=== PATIENT | female | born 1985 | race Caucasian/White ===

== ENCOUNTER 2016-12-15 12:41 | Emergency (ER) | payer SELFPAY ==
--- NOTE | 2016-12-15 13:30 | ER Document Report ---
ED Medical Screen (RME) - General Stated Complaint: WEAKNESS Notes: 3 days with lethargy. no bleeding, normal movement. no urinary or vaginal symptoms 23 weeks I have greeted and performed a rapid initial assessment of this patient. A comprehensive ED assessment and evaluation of the patient, analysis of test results and completion of the medical decision making process will be conducted by additional ED providers. - Related Data Allergies/Adverse Reactions: No Known Allergies Allergy (Verified 12/15/16 13:27) Physical Exam - Vital signs Vitals: Temp Pulse Resp BP Pulse Ox 98.8 F 101 H 16 117/74 99 12/15/16 13:26 12/15/16 13:26 12/15/16 13:26 12/15/16 13:26 12/15/16 13:26 Course - Vital Signs Vital signs: Temp Pulse Resp BP Pulse Ox 98.8 F 101 H 16 117/74 99 12/15/16 13:26 12/15/16 13:26 12/15/16 13:26 12/15/16 13:26 12/15/16 13:26
[2016-12-15 14:10] LABS: ABSOLUTE EOSINOPHILS # (AUTO) 0.1 10^3/uL (0.0-0.6); ABSOLUTE LYMPHOCYTES (AUTO) 1.4 10^3/uL (0.5-4.7); ABSOLUTE MONOCYTES (AUTO) 0.3 10^3/uL (0.1-1.4); ABSOLUTE NEUT (AUTO) 6.6 10^3/uL (1.7-8.2); BASOPHILS % (AUTO) 0.4 % (0-2); HEMATOCRIT 32.7 % (36.0-47.0); HGB HCT DIFFERENCE 0.3; MEAN CORPUSCULAR HGB CONC 33.5 g/dL (32.0-36.0); MEAN CORPUSCULAR VOLUME 90 fl (80-97); MONOCYTES % (AUTO) 3.9 % (3-13); RED BLOOD COUNT 3.66 10^6/uL (3.72-5.28); RED CELL DISTRIBUTION WIDTH 12.8 % (11.5-14.0); SEGMENTED NEUTROPHILS % (AUTO) 77.7 % (42-78); WHITE BLOOD COUNT 8.5 10^3/uL (4.0-10.5)
[2016-12-15 14:13] LABS: APPEARANCE,URINE SLIGHTLY-CLOUDY; BILIRUBIN,URINE NEGATIVE (NEGATIVE); GLUCOSE, URINE NEGATIVE (NEGATIVE); KETONES,URINE NEGATIVE (NEGATIVE); LEUKOCYTE ESTERASE,URINE NEGATIVE (NEGATIVE); NITRITE,URINE NEGATIVE (NEGATIVE); PROTEIN,URINE NEGATIVE (NEGATIVE); URINE SPECIFIC GRAVITY 1.006; UROBILINOGEN,URINE NEGATIVE mg/dL (<2.0)
[2016-12-15] MEDS ORDERED: NORMAL SALINE 1000 ML 1,000 ML IV ONE (14:17)
[2016-12-15 14:30] LABS: ALANINE AMINOTRANSFERASE 30 U/L (9-52); ALBUMIN 3.6 g/dL (3.5-5.0); ALKALINE PHOSPHATASE 66 U/L (38-126); ANION GAP 11 (5-19); ASPARTATE AMINO TRANSFERASE 18 U/L (14-36); BILIRUBIN,TOTAL 0.3 mg/dL (0.2-1.3); BLOOD UREA NITROGEN 10 mg/dL (7-20); CALCIUM 9.3 mg/dL (8.4-10.2); CARBON DIOXIDE 27 mmol/L (22-30); CHLORIDE 100 mmol/L (98-107); CREATININE RESULT 0.56 mg/dL (0.52-1.25); GLUCOSE 78 mg/dL (75-110); POTASSIUM 3.9 mmol/L (3.6-5.0); SODIUM 137.8 mmol/L (137-145); TOTAL PROTEIN 6.8 g/dL (6.3-8.2)
--- NOTE | 2016-12-15 14:48 | ER Document Report ---
[id number] TRAVEL OUTSIDE OF THE [place] IN LAST 30 DAYS: No - HPI Quality of pain: No pain Severity: None Associated symptoms: None <HUMAIRA AKINS - Last Filed: 12/15/16 16:14> <ÁNGEL KUMAR - Last Filed: 12/18/16 01:21> - General Chief Complaint: Weakness Stated Complaint: WEAKNESS Notes: Patient is a 31-year-old female that presents to the emergency department today with complaints of generalized weakness including near-syncope over the last 3- 4 days. Patient states she has intermittently felt like this throughout her . Patient states she is 23 weeks . Patient is . Patient states she feels like her hands and feet are cold. Patient states she believes she is hydrating appropriately, she believes she is drinking approximately one half of a gallon of water a day. Patient states that she has been taking multivitamins with iron and she has noticed that this constipates her. Patient denies any vomiting, caffeine usage, history of anemia, urinary symptoms, vaginal discharge, or abdominal pain. Patient states she has felt the baby move appropriately over the last few days. (HUMAIRA AKINS) - Related Data Allergies/Adverse Reactions: No Known Allergies Allergy (Verified 12/15/16 13:27) Past Medical History - General Information source: Patient - Social History Smoking Status: Unknown if Ever Smoked Cigarette use (# per day): No Chew tobacco use (# tins/day): No Frequency of alcohol use: None Drug Abuse: None Lives with: Spouse/Significant other Family History: Reviewed & Not Pertinent Patient has suicidal ideation: No Patient has homicidal ideation: No Pulmonary Medical History: Reports: Hx Pneumonia Surgical Hx: Negative <HUMAIRA AKINS - Last Filed: 12/15/16 16:14> Review of Systems - Review of Systems Constitutional: See HPI, Other - "cold hands and feet" EENT: No symptoms reported Cardiovascular: See HPI, Other - near syncope Respiratory: No symptoms reported Gastrointestinal: See HPI, Constipation. denies: Abdominal pain, Vomiting Genitourinary: denies: Burning, Dysuria, Discharge, Hematuria Female Genitourinary: See HPI, Musculoskeletal: No symptoms reported Skin: No symptoms reported Hematologic/Lymphatic: No symptoms reported Neurological/Psychological: No symptoms reported -: Yes All other systems reviewed and negative <HUMAIRA AKINS - Last Filed: 12/15/16 16:14> Physical Exam <HUMAIRA AKINS - Last Filed: 12/15/16 16:14> <ÁNGEL KUMAR - Last Filed: 12/18/16 01:21> - Vital signs Vitals: Temp Pulse Resp BP Pulse Ox 98.8 F 101 H 16 117/74 99 12/15/16 13:26 12/15/16 13:26 12/15/16 13:26 12/15/16 13:26 12/15/16 13:26 (HUMAIRA AKINS) (ÁNGEL KUMAR) - Notes Notes: Physical Exam: General: Alert, appears well. HEENT: Normocephalic. Atraumatic. PERRL. Extraocular movements intact. Oropharynx clear. Neck: Supple. Respiratory: No respiratory distress. Abdominal: Gravid Female. No distension. No tenderness with palpation. No rigidity or palpable masses. Extremities: Moves all four extremities. Neurological: Normal cognition. AAOx4. Normal speech. Psychological: Normal affect. Normal Mood. Skin: Warm. Dry. Normal color. (HUMAIRA AKINS) Course - Laboratory Result Diagrams: 12/15/16 13:40 12/15/16 13:40 <HUMAIRA AKINS - Last Filed: 12/15/16 16:14> - Laboratory Result Diagrams: 12/15/16 13:40 12/15/16 13:40 <ÁNGEL KUMAR - Last Filed: 12/18/16 01:21> - Re-evaluation Re-evalutation: 12/15/16 16:33 I personally performed the services described in the documentation, reviewed and edited the documentation which was dictated to my scribe in my presence, and it accurately records my words and actions. Patient presents the emergency department approximately 22-23 weeks with a chief complaint of weakness. Patient has not seen any provider for her as scheduled when she got insurance to see Dr. Lainez on Thursday. Says she's felt weak and tired the entire that is not new or different. Sellick her heart was racing a little bit. She said that's really no different than it's been for the past 23 weeks but they wanted to be seen today were unable to so they came to the emergency department. She has no abdominal pain flank pain urinary symptoms vaginal bleeding or discharge no chest pain pressure or headache blurred vision double vision or neurological deficits she is well-appearing nontoxic on examination. Well-hydrated negative acute labs. We will DC follow up on Thursday with [facility] physician as instructed return for increasing worsening or new symptoms (ÁNGEL KUMAR) - Vital Signs Vital signs: Temp Pulse Resp BP Pulse Ox 98.7 F 98 16 101/84 100 12/15/16 18:00 12/15/16 18:00 12/15/16 18:00 12/15/16 18:00 12/15/16 18:00 (HUMAIRA AKINS) (ÁNGEL KUMAR) - Laboratory Laboratory results interpreted by me: 12/15/16 12/15/16 12/15/16 13:40 13:40 13:40 RBC 3.66 L Hgb 11.0 L Hct 32.7 L Beta HCG, Quant 53920.00 H Urine Ascorbic Acid 20 H (HUMAIRA AKINS) (ÁNGEL KUMAR) Discharge <HUMAIRA AKINS - Last Filed: 12/15/16 16:14> <ÁNGEL KUMAR - Last Filed: 12/18/16 01:21> - Discharge Clinical Impression: Fatigue during Qualifiers: Trimester: second trimester Qualified Code(s): O26.812 - related exhaustion and fatigue, second trimester Condition: Stable Disposition: HOME, SELF-CARE Additional Instructions: You are . care is best started as early in as possible. If you're unsure about continuing this , you should discuss this with your physician or with health informatics specialist at [facility]. You should take only medications approved by your physician. Acetaminophen can safely be taken for minor pains. As a rule, medication for chronic conditions such as asthma or seizures can safely be continued. You should discuss with the physician every medicine you take. Any regular exercise program can be continued. Talk to your physician, however, before engaging in competitive or demanding sports. Alcohol, smoking, and "street drugs" are dangerous to your baby. Cocaine is especially dangerous. Don't use any illicit drugs! Referrals: PETER PIPER MD [Primary Care Provider] - Follow up as needed (On Thursday as scheduled return immediately to the emergency department for increasing worsening or new symptoms) Scribe Documentation <HUMAIRA AKINS - Last Filed: 12/15/16 16:14> <ÁNGEL KUMAR - Last Filed: 12/18/16 01:21> - Scribe Written by Sherlynibe:: ÁNGEL KUMAR DO, SCRIBE 12/15/16 1633 Acting as scribe for: HUMAIRA Ridley) (ÁNGEL KUMAR)
[2016-12-16 00:40] VITALS: BP 101/84
== END 2016-12-15 18:05 | disposition home or self-care (01) ==
LOC: ER 12:41
DX: O26.812 Pregnancy related exhaustion and fatigue, second trimester (principal); O26.892 Other specified pregnancy related conditions, second trimester; R53.1 Weakness; R55 Syncope and collapse; Z3A.23 23 weeks gestation of pregnancy; Z79.899 Other long term (current) drug therapy
CPT/HCPCS: 36415; 80053; 81001; 84702; 85025; 99284

== ENCOUNTER 2017-02-13 11:09 | Emergency (ER) | payer BC ==
[2017-02-13] MEDS ORDERED: NORMAL SALINE 1000 ML 1,000 ML IV ONE (11:17)
--- NOTE | 2017-02-13 11:19 | ER Document Report ---
ED Medical Screen (RME) - General Stated Complaint: BLOOD PRESSURE PROBLEMS Notes: Patient sent from [facility] for evaluation of shortness of breath, low blood pressure and elevated HR. Blood pressure at office was 75/47, heart rate 163. Patient was feeling weak at the office, and vomited 1. Patient is 32 weeks , but has no abdominal pain or vaginal bleeding. Discussed patient with Dr. Rice. I have greeted and performed a rapid initial assessment of this patient. A comprehensive ED assessment and evaluation of the patient, analysis of test results and completion of the medical decision making process will be conducted by additional ED providers. TRAVEL OUTSIDE OF THE [place] IN LAST 30 DAYS: No - Related Data Allergies/Adverse Reactions: No Known Allergies Allergy (Verified 02/13/17 11:16) Past Medical History Pulmonary Medical History: Reports: Hx Pneumonia Renal/ Medical History: Denies: Hx Peritoneal Dialysis Physical Exam - Cardiovascular Rhythm: Regular Heart sounds: Normal auscultation
--- NOTE | 2017-02-13 12:02 | ER Document Report ---
ED General - General Chief Complaint: Low Blood Pressure Stated Complaint: BLOOD PRESSURE PROBLEMS Mode of Arrival: Ambulatory Information source: Patient Notes: This is a 31-year-old female at 32 weeks' gestational age who [facility] of low blood pressure. Patient states that she was at her scheduled surgery 2 week appointment today when she felt weak and lightheaded. She also had an episode of nausea and vomiting at the office. Reportedly her blood pressure at the office was 75/47 with a heart rate of 163. Patient states that she has been feeling intermittently lightheaded throughout her but worse over the past few weeks. She denies any fevers or chills. She did eat a good breakfast this morning. She denies any abdominal pain or cramping. She has had no chest pain or shortness of breath. She has had no lower extremity edema. She has not had headaches, or vision changes. She has had no vaginal bleeding or loss of fluids. She does report good movement today. She states that she has not had any problems with this . Currently she states that she feels much better and has no specific complaints at this time. TRAVEL OUTSIDE OF THE [place] IN LAST 30 DAYS: No - Related Data Allergies/Adverse Reactions: No Known Allergies Allergy (Verified 02/13/17 11:16) Past Medical History - Social History Smoking Status: Never Smoker Chew tobacco use (# tins/day): No Frequency of alcohol use: None Drug Abuse: None Family History: Reviewed & Not Pertinent Patient has suicidal ideation: No Patient has homicidal ideation: No Pulmonary Medical History: Reports: Hx Pneumonia Renal/ Medical History: Denies: Hx Peritoneal Dialysis Review of Systems - Review of Systems Notes: REVIEW OF SYSTEMS: CONSTITUTIONAL : Denies fever, chills, or sweats. Denies recent illness. EENT: Denies eye, ear, throat, or mouth pain or symptoms. Denies nasal or sinus congestion. CARDIOVASCULAR: Denies chest pain. RESPIRATORY: Denies cough, cold, or chest congestion. Denies shortness of breath, difficulty breathing, or wheezing. GASTROINTESTINAL: Denies abdominal pain. Denies nausea, vomiting, or diarrhea. Mild constipation GENITOURINARY: Denies difficulty urinating, painful urination, burning, frequency, or blood in urine. FEMALE GENITOURINARY: Denies vaginal bleeding MUSCULOSKELETAL: Denies neck or back pain or joint pain or swelling. SKIN: Denies rash or skin lesions. HEMATOLOGIC : Denies easy bruising or bleeding. LYMPHATIC: Denies swollen, enlarged glands. NEUROLOGICAL: Denies altered mental status or loss of consciousness. Denies headache. PSYCHIATRIC: Denies anxiety or stress or depression. ALL OTHER SYSTEMS REVIEWED AND NEGATIVE. Physical Exam - Vital signs Vitals: Temp Pulse Resp BP Pulse Ox 98 F 96 16 98/67 L 100 02/13/17 11:11 02/13/17 11:11 02/13/17 11:11 02/13/17 11:11 02/13/17 11:11 Notes: FHT = 138-143 - Notes Notes: PHYSICAL EXAMINATION: GENERAL: Well-appearing, well-nourished and in no acute distress. Very pleasant and conversant HEAD: Atraumatic, normocephalic. EYES: Pupils equal round and reactive to light, extraocular movements intact, sclera anicteric, conjunctiva are normal. ENT: nares patent, oropharynx clear without exudates. Moist mucous membranes. NECK: Normal range of motion, supple without lymphadenopathy LUNGS: Breath sounds clear to auscultation bilaterally and equal. No wheezes rales or rhonchi. HEART: Regular rate and rhythm without murmurs ABDOMEN: Soft, gravid ,nontender, normoactive bowel sounds. No guarding, no rebound. No masses appreciated. EXTREMITIES: Normal range of motion, no pitting or edema. No cyanosis. NEUROLOGICAL: Cranial nerves grossly intact. Normal speech, normal gait. Normal sensory, motor, and reflex exams. PSYCH: Normal mood, normal affect. SKIN: Warm, Dry, normal turgor, no rashes or lesions noted. Course - Re-evaluation Re-evalutation: 02/13/17 15:23 Patient reevaluated. She stated that she feels much better. Orthostatic vital signs are within normal limits. Her blood pressure has been stable here in the emergency department. Labs and urine are reassuring. I discussed the case with OB physician Dr. Lowery. She recommends continued rest and po fluids at home , and recheck in clinic early next week. Strict return precautions discussed. Pt and family very comfortable with this plan. - Vital Signs Vital signs: Temp Pulse Resp BP Pulse Ox 98 F 103 H 20 100/65 100 02/13/17 13:07 02/13/17 15:15 02/13/17 13:00 02/13/17 15:15 02/13/17 13:00 - Laboratory Result Diagrams: 02/13/17 12:30 02/13/17 12:30 Laboratory results interpreted by me: 02/13/17 02/13/17 02/13/17 12:30 12:30 12:30 RBC 3.67 L Hgb 11.3 L Hct 32.5 L Seg Neutrophils % 83.5 H Lymphocytes % 11.9 L Absolute Neutrophils 8.7 H Sodium 135.3 L Creatinine 0.44 L Creatine Kinase < 20 L Urine Glucose (UA) 50 H Discharge - Discharge Clinical Impression: Third trimester , Dehydration Vomiting Qualifiers: Vomiting type: unspecified Vomiting Intractability: non-intractable Nausea presence: with nausea Qualified Code(s): R11.2 - Nausea with vomiting, unspecified Condition: Stable Disposition: HOME, SELF-CARE Additional Instructions: As discussed, continue to rest and drink plenty of fluids. Follow-up with OB on Thursday. Return to the emergency department for any fever, contractions, vaginal bleeding, fainting, decreased movement or any worsening symptoms or concerns. Referrals: PETER PIPER MD [Primary Care Provider] - Follow up as needed
[2017-02-13 12:50] LABS: ABSOLUTE LYMPHOCYTES (AUTO) 1.2 10^3/uL (0.5-4.7); ABSOLUTE MONOCYTES (AUTO) 0.4 10^3/uL (0.1-1.4); ABSOLUTE NEUT (AUTO) 8.7 10^3/uL (1.7-8.2); BASOPHILS % (AUTO) 0.3 % (0-2); EOSINOPHILS % (AUTO) 0.4 % (0-6); HEMATOCRIT 32.5 % (36.0-47.0); HEMOGLOBIN 11.3 g/dL (12.0-15.5); HGB HCT DIFFERENCE 1.4; LYMPHOCYTES % (AUTO) 11.9 % (13-45); MEAN CORPUSCULAR HEMOGLOBIN 30.6 pg (27.0-33.4); MEAN CORPUSCULAR HGB CONC 34.6 g/dL (32.0-36.0); MEAN CORPUSCULAR VOLUME 89 fl (80-97); MONOCYTES % (AUTO) 3.9 % (3-13); RED BLOOD COUNT 3.67 10^6/uL (3.72-5.28); RED CELL DISTRIBUTION WIDTH 12.8 % (11.5-14.0); SEGMENTED NEUTROPHILS % (AUTO) 83.5 % (42-78); WHITE BLOOD COUNT 10.4 10^3/uL (4.0-10.5)
[2017-02-13 12:54] LABS: APPEARANCE,URINE SLIGHTLY-CLOUDY; BILIRUBIN,URINE NEGATIVE (NEGATIVE); GLUCOSE, URINE 50 mg/dL (NEGATIVE); KETONES,URINE NEGATIVE (NEGATIVE); LEUKOCYTE ESTERASE,URINE NEGATIVE (NEGATIVE); NITRITE,URINE NEGATIVE (NEGATIVE); PROTEIN,URINE NEGATIVE (NEGATIVE); UROBILINOGEN,URINE NEGATIVE mg/dL (<2.0)
[2017-02-13 12:59] LABS: PROTHROMBIN TIME 11.9 SEC (11.4-15.4)
[2017-02-13 13:13] LABS: ALANINE AMINOTRANSFERASE 25 U/L (9-52); ALBUMIN 3.7 g/dL (3.5-5.0); ALKALINE PHOSPHATASE 89 U/L (38-126); ANION GAP 9 (5-19); ASPARTATE AMINO TRANSFERASE 19 U/L (14-36); BILIRUBIN,TOTAL 0.4 mg/dL (0.2-1.3); BLOOD UREA NITROGEN 10 mg/dL (7-20); CALCIUM 9.5 mg/dL (8.4-10.2); CARBON DIOXIDE 26 mmol/L (22-30); CHLORIDE 100 mmol/L (98-107); CREATININE RESULT 0.44 mg/dL (0.52-1.25); GLUCOSE 94 mg/dL (75-110); POTASSIUM 3.9 mmol/L (3.6-5.0); SODIUM 135.3 mmol/L (137-145); TOTAL PROTEIN 6.7 g/dL (6.3-8.2)
[2017-02-13 13:17] LABS: CREATINE KINASE < 20 U/L (30-135)
[2017-02-13 13:28] LABS: CREATINE KINASE MB < 0.22 ng/mL (<4.55); TROPONIN I < 0.012 ng/mL
[2017-02-13 15:47] VITALS: BP 106/62
--- NOTE | 2017-02-14 16:02 | EKG REPORT ---
SEVERITY:- NORMAL ECG - SINUS RHYTHM : Confirmed by: Sweetie Delgado MD 14-Feb-2017 16:02:12
== END 2017-02-13 16:00 | disposition home or self-care (01) ==
LOC: ER 11:09
DX: O21.2 Late vomiting of pregnancy (principal); O99.283 Endocrine, nutritional and metabolic diseases complicating pregnancy, third trimester; E86.0 Dehydration; O26.893 Other specified pregnancy related conditions, third trimester; R42 Dizziness and giddiness; Z3A.32 32 weeks gestation of pregnancy
CPT/HCPCS: 93005; 99285; 96360; 36415; 82553; 82550; 85025; 85610; 80053; 81001; 84484; 93010; J7030

== ENCOUNTER 2017-03-31 00:07 | Inpatient (IN) | payer BC ==
[2017-03-31 00:45] LABS: APPEARANCE,URINE CLEAR; BILIRUBIN,URINE NEGATIVE (NEGATIVE); GLUCOSE, URINE NEGATIVE (NEGATIVE); KETONES,URINE NEGATIVE (NEGATIVE); LEUKOCYTE ESTERASE,URINE NEGATIVE (NEGATIVE); NITRITE,URINE NEGATIVE (NEGATIVE); PROTEIN,URINE NEGATIVE (NEGATIVE); URINE SPECIFIC GRAVITY 1.006; UROBILINOGEN,URINE NEGATIVE mg/dL (<2.0)
[2017-03-31 00:52] LABS: AMNISURE (ROM) POSITIVE (NEGATIVE)
[2017-03-31] MEDS ORDERED: FENTANYL/BUPIVACAINE/NS/PF 200 MCG/100 ML RTUINJ EPI ONE (00:57)
[2017-03-31] MEDS ORDERED: BUPIVACAINE HCL 0.25 % INJ/PF (2.5 MG/1 ML) 30 ML VIAL ONE (00:57)
[2017-03-31] MEDS ORDERED: EPHEDRINE SULFATE INJ 50 MG/1 ML AMPULE ONE (00:57)
[2017-03-31] MEDS ORDERED: RINGERS SOLUTION,LACTATED 1,000 ML IV PRN (00:58)
[2017-03-31] MEDS ORDERED: RINGERS SOLUTION,LACTATED 1,000 ML IV ONE (00:58)
[2017-03-31] MEDS ORDERED: PENICILLIN G-K 5 MILLION UNIT VIAL ONE ×2 (00:58→04:01)
[2017-03-31] MEDS ORDERED: PENICILLIN G POTASSIUM 5,000,000 UNIT in DEXTROSE 5%-WATER 100 ML IV ONE (00:58)
[2017-03-31 01:01] LABS: URINE BARBITURATES SCREEN NEGATIVE; URINE METHADONE SCREEN NEGATIVE; URINE OPIATES LOW NEGATIVE; URINE PHENCYCLIDINE SCREEN NEGATIVE
[2017-03-31 01:21] LABS: ABSOLUTE EOSINOPHILS # (AUTO) 0.1 10^3/uL (0.0-0.6); ABSOLUTE LYMPHOCYTES (AUTO) 1.8 10^3/uL (0.5-4.7); ABSOLUTE MONOCYTES (AUTO) 0.5 10^3/uL (0.1-1.4); ABSOLUTE NEUT (AUTO) 10.7 10^3/uL (1.7-8.2); BASOPHILS % (AUTO) 0.3 % (0-2); EOSINOPHILS % (AUTO) 0.4 % (0-6); HEMATOCRIT 33.8 % (36.0-47.0); HEMOGLOBIN 11.6 g/dL (12.0-15.5); LYMPHOCYTES % (AUTO) 13.6 % (13-45); MEAN CORPUSCULAR HEMOGLOBIN 29.2 pg (27.0-33.4); MEAN CORPUSCULAR HGB CONC 34.1 g/dL (32.0-36.0); MEAN CORPUSCULAR VOLUME 85 fl (80-97); MONOCYTES % (AUTO) 4.1 % (3-13); RED BLOOD COUNT 3.96 10^6/uL (3.72-5.28); RED CELL DISTRIBUTION WIDTH 12.6 % (11.5-14.0); SEGMENTED NEUTROPHILS % (AUTO) 81.6 % (42-78); WHITE BLOOD COUNT 13.1 10^3/uL (4.0-10.5)
[2017-03-31] MEDS ORDERED: OXYTOCIN/NORMAL SALINE 20 UNIT/1,000 ML RTUINJ ONE (01:27)
[2017-03-31] MEDS ORDERED: LIDOCAINE 1% INJ-PF (10 MG/ML) 30 ML SDV ONE (01:27)
[2017-03-31] MEDS ORDERED: MISOPROSTOL 0.2 MG TABLET ONE (01:27)
[2017-03-31] MEDS ORDERED: PENICILLIN G POTASSIUM 2,500,000 UNIT in DEXTROSE 5%-WATER 50 ML IV SCH (04:59)
--- NOTE | 2017-03-31 07:00 | L&D Progress Notes ---
PROGRESS NOTES Datetime Report Generated by CPN: 03/31/2017 07:00 PROGRESS NOTE Impression: Normal Progression of Labor; Reactive Non Stress Test Procedures: Artificial ROM; Sterile Vag Exam Plan: Continue Present Management; Augmentation Informed Consent Obtained: Vaginal Delivery; Risks, Benefits and Alternatives Discussed Vital Signs : Reviewed; Within Normal Limits Comment: Continued progress in labor. Pt now feeling pressure in pelvis with ctx. Forebag noted and ruptured - clear fluid. AL/c/+2. Continue with positions changes. Anticiapte . VAGINAL EXAM Dilatation: 3 Effacement: 100 Station: -1 Contractions: q 2-3 MEMBRANES Pooling: Positive Ferning Results: Positive Membranes: Ruptured Amniotic Fluid Color: Clear FETUS A Monitoring: External US Variability: Moderate 6-25bpm Decelerations: None FHR Category: Category I Presentation: Vertex SIGNATURE SIGNATURE: [id number] Signature: with User ID: [email or web address]
[2017-03-31] MEDS ORDERED: PENICILLIN G-K 5 MILLION UNIT VIAL IV SCH (08:00)
[2017-03-31 09:08] LABS: ARTERIAL BLOOD BASE EXCESS -8.4 mmol/L
[2017-03-31] MEDS ORDERED: BENZOCAINE/MENTHOL AEROSOL SPRAY 56 ML TOP PRN (09:12)
[2017-03-31] MEDS ORDERED: ACETAMINOPHEN WITH CODEINE #3 TABLET PO PRN ×2 (09:12)
[2017-03-31] MEDS ORDERED: MEASLES,MUMPS&RUBELLA VACC/PF 0.5 ML VIAL SUBCUT PRN (09:12)
[2017-03-31] MEDS ORDERED: ACETAMINOPHEN 650 MG SUPP.RECT PR PRN (09:12)
[2017-03-31] MEDS ORDERED: MISOPROSTOL 0.2 MG TABLET PR ONE (09:12)
[2017-03-31] MEDS ORDERED: NA PHOS,M-B/NA PHOS,DI-BA (ADULT) 133 ML ENEMA PR PRN (09:12)
[2017-03-31] MEDS ORDERED: ZOLPIDEM TARTRATE 5 MG TABLET PO PRN (09:12)
[2017-03-31] MEDS ORDERED: PROMETHAZINE HCL 25 MG TABLET PO PRN (09:12)
[2017-03-31] MEDS ORDERED: PROMETHAZINE HCL 25 MG SUPP.RECT PR PRN (09:12)
[2017-03-31] MEDS ORDERED: DIPH/PERTUSS(ACELL)/TETANUS VAC/PF 0.5 ML SYR (>=10YO) IM PRN (09:12)
[2017-03-31] MEDS ORDERED: GLYCERIN/WITCH HAZEL LEAF 1 EACH MED..PAD TP PRN (09:12)
[2017-03-31] MEDS ORDERED: PROMETHAZINE HCL INJ 25 MG/1 ML VIAL IV PRN (09:12)
[2017-03-31] MEDS ORDERED: DIPHENHYDRAMINE HCL 25 MG CAPSULE PO PRN (09:12)
[2017-03-31] MEDS ORDERED: MAGNESIUM HYDROXIDE SUSP 30 ML UDCUP PO PRN (09:12)
[2017-03-31] MEDS ORDERED: OXYTOCIN/NORMAL SALINE 1,000 ML IV PRN (09:12)
[2017-03-31] MEDS ORDERED: PSEUDOEPHEDRINE HCL 30 MG TABLET PO PRN (09:12)
[2017-03-31] MEDS ORDERED: DIBUCAINE 1% OINTMENT 28 GM TP PRN (09:12)
--- NOTE | 2017-03-31 10:54 | Delivery Summary ---
Del Sum A-C Datetime Report Generated by CPN: 03/31/2017 10:54 DELIVERY PERSONNEL DELIVERY PERSONNEL: [id number] Delivery Doctor:: Joy Hawkins CNM Nurse Environmental Inspector Certified:: Joy Hawkins CNM Labor and Delivery Nurse:: Robina Redd RNdrywall hanger helper Nurse:: VAL Knox Nursery Nurse:: Chanelle NEAL Brass Sorter/ANA: Abel Alvarez, ST MATERNAL INFORMATION Delivery Anesthesia: Epidural Medications After Delivery: Pitocin Bolus-Please Comment; Pitocin Drip 20 Units/1000ml NSS; Cytotec 600mcg Per Rectum/Vagina Estimated Blood Loss (ml): 300 Maternal Complications: None Provider Comments: viable male from OA to JOSE over ML lac, loose nuchal cord, reduced easily, placed on mothers abd, spont delivery of grossly normal intact placenta, 3 VC, EBL = 300cc, cord clamped and cut after 4 minutes, baby remains in recovery on mothers abd for bonding, FFFM. Lac repaired without difficulty, cytotec 600 mcg and fundal massage and Pitocin used. Plans to breast feed,hsb in room with baby and pt LABOR SUMMARY EDC: 04/11/2017 00:00 No. Babies in Womb: 1 Attempted: No Labor Anesthesia: Epidural LABOR INFORMATION Reason for Induction: Not Applicable Onset of Labor: 03/30/2017 23:00 Complete Dilatation: 03/31/2017 07:53 Oxytocin: Augmentation Group B Beta Strep: Positive Antibiotics # of Doses: 2 Antibiotics Time of Last Dose: 404 Name of Antibiotic Given: penicillin Steroids Given: None Reason Steroids Not Administered: Not Applicable MEMBRANES Membranes Rupture Method: Artificial Rupture of Membranes: 03/30/2017 23:00 Length of Rupture (hr): 9.57 Amniotic Fluid Color: Clear Amniotic Fluid Amount: Small Amniotic Fluid Odor: Normal STAGES OF LABOR Stage 1 hr: 8 Stage 1 min: 53 Stage 2 hr: 0 Stage 2 min: 41 Stage 3 hr: 0 Stage 3 min: 8 Total Time in Labor hr: 9 Total Time in Labor min: 42 VAGINAL DELIVERY Episiotomy: None Laceration Extension: First Degree Laceration Type: Perineal Laceration Repair: Yes Laceration Repair Note: ML repaired without difficulty, chroomic Sponge Count Correct: N/A Sharps Count Correct: N/A CSECTION DELIVERY Primary Indication: N/A Secondary Indication: N/A CSection Incidence: N/A Labor: N/A Elective: N/A CSection Incision: N/A BABY A INFORMATION Infant Delivery Date/Time: 03/31/2017 08:34 Method of Delivery: Vaginal Born in Route : No : N/A Forceps: N/A Vacuum Extraction: N/A Shoulder Dystocia : No PRESENTATION/POSITION BABY A Presentation: Cephalic Cephalic Presentation: Vertex Vertex Position: Right Occipital Anterior Breech Presentation: N/A PLACENTA INFORMATION BABY A Placenta Delivery Time : 03/31/2017 08:42 Placenta Method of Delivery: Spontaneous Placenta Status: Delivered SCORES BABY A Heart Rate 1 min: >100 bpm Resp Effort 1 min: Good Cry Reflex Irritability 1 min: Cough or Sneeze or Pulls Away Muscle Tone 1 min: Active Motion Color 1 min: Blue/Pale Resuscitation Effort 1 min: Tactile Stimulation SCORE 1 MIN: 8 Heart Rate 5 min: >100 bpm Resp Effort 5 min: Good Cry Reflex Irritability 5 min: Cough or Sneeze or Pulls Away Muscle Tone 5 min: Active Motion Color 5 min: Body [place], Extremities Blue Resuscitation Effort 5 min: N/A SCORE 5 MIN: 9 Resuscitation Effort 10 min: N/A INFANT INFORMATION BABY A Gestational Age at Delivery: 38.3 Gestational Status: Early Term- 37- 38.6 Weeks Infant Outcome : Liveborn Condition : Fair Sex: Male IDENTIFICATION BABY A Verification Date/Time: 03/31/2017 09:06 ID Band Number: [id number] Mother's Name Verified: Yes Infant RN Verifying : Jaida Clarksdale RNC Additional Verifying Personnel: Robina Redd RN WEIGHT/LENGTH BABY A Infant Birthweight (gm): 2920 Weight (lb): 6 Infant Weight (oz): 7 Infant Length (in): 19.75 Length (cm): 50.17 CORD INFORMATION BABY A No. Cord Vessels: 3 Nuchal Cord : Around Neck x1, Loose Cord Blood Taken: Yes-For Eval (Mom's Blood Type - or O+) Suction: Mouth; Nose ASSESSMENT BABY A Infant Complications: Multiple Variable Decels Physical Findings at Delivery: Caput Succedaneum; Puncture Wound from Scalp Electrode Respirations: Nasal Flaring Skin to Skin: Yes Skin to Skin Time (min): 60 Insurance Customer Service Specialist/ALS Called : No Infant Care By: D Marita RNC Transferred To: Remains with Mother BABY B INFORMATION Shoulder Dystocia : No
[2017-03-31] MEDS: IBUPROFEN 800 MG TABLET PO SCH ×2 (13:50→21:24)
[2017-03-31] MEDS: FAMOTIDINE 20 MG TABLET PO SCH ×2 (16:51→21:24)
[2017-03-31] MEDS: SENNOSIDES/DOCUSATE 8.6-50 MG 1 EACH TABLET PO SCH (16:51)
[2017-03-31] MEDS: FERROUS SULFATE 325 MG TABLET PO SCH ×2 (16:51→17:15)
[2017-03-31] MEDS: PRENATAL VITAMIN W-O CA NO5/FE FUMARATE/FA CAPSULE PO SCH (16:51)
[2017-03-31] MEDS: DOCUSATE SODIUM 100 MG CAPSULE PO SCH ×2 (16:51→17:15)
[2017-04-01] MEDS: IBUPROFEN 800 MG TABLET PO SCH ×3 (05:15→21:26)
[2017-04-01 07:09] LABS: HEMATOCRIT 31.2 % (36.0-47.0); HEMOGLOBIN 10.9 g/dL (12.0-15.5); HGB HCT DIFFERENCE 1.5; MEAN CORPUSCULAR HEMOGLOBIN 30.1 pg (27.0-33.4); MEAN CORPUSCULAR VOLUME 86 fl (80-97); RED BLOOD COUNT 3.63 10^6/uL (3.72-5.28); RED CELL DISTRIBUTION WIDTH 12.9 % (11.5-14.0); WHITE BLOOD COUNT 11.8 10^3/uL (4.0-10.5)
[2017-04-01] MEDS: FAMOTIDINE 20 MG TABLET PO SCH ×2 (09:22→21:26)
[2017-04-01] MEDS: DOCUSATE SODIUM 100 MG CAPSULE PO SCH ×2 (09:22→17:30)
[2017-04-01] MEDS: SENNOSIDES/DOCUSATE 8.6-50 MG 1 EACH TABLET PO SCH (09:23)
[2017-04-01] MEDS: FERROUS SULFATE 325 MG TABLET PO SCH ×2 (09:23→17:30)
[2017-04-01] MEDS: PRENATAL VITAMIN W-O CA NO5/FE FUMARATE/FA CAPSULE PO SCH (09:46)
--- NOTE | 2017-04-01 12:25 | PDOC PROGRESS REPORT ---
Subjective-OB Subjective: Post Delivery Day: 32 year old. Denies any needs at this time assisted pt with nipple shield to left breast +latch and suck ff@u-1 mild lochia vss pt doing well/ bonding with baby and spouse anticipate d/c in AM Physical Exam (OB) Vital Signs: Temp Pulse Resp BP Pulse Ox 97.5 F 79 14 103/62 98 04/01/17 09:00 04/01/17 09:00 04/01/17 09:00 04/01/17 09:00 04/01/17 09:00 Intake & Output 03/31/17 04/01/17 04/02/17 06:59 06:59 06:59 Intake Total 240 Balance 240 Weight 58 kg - Lochia Lochia Amount: Small 10-25 ml Lochia Color: Rubra/Red - Abdomen Description: Tender, Soft Hernia Present: No Fundal Description: Firm, Midline Fundal Height: u/u - u/2 Objective-Diagnostic Laboratory: 04/01/17 06:55 04/01/17 06:55 WBC 11.8 H RBC 3.63 L Hgb 10.9 L Hct 31.2 L MCV 86 MCH 30.1 MCHC 35.0 RDW 12.9 Plt Count 245
[2017-04-02] MEDS: IBUPROFEN 800 MG TABLET PO SCH (05:56)
--- NOTE | 2017-04-02 08:58 | PDOC DISCHARGE SUMMARY ---
Final Diagnosis Discharge Date: 04/02/17 Discharge Data - Discharge Medication Home Medications: Calcium Carbonate [Calci-Chew] 1 tab PO DAILY 03/31/17 Pnv95/Ferrous Fumarate/FA [ Formula Tablet] 1 tab PO DAILY 03/31/17 Docusate Sodium [Colace 100 mg Capsule] 100 mg PO BID #60 capsule 04/02/17 Ibuprofen [Motrin 800 mg Tablet] 800 mg PO Q8 #60 tablet 04/02/17 Gestational Age: 38.3 Reason(s) for Admission: Onset of Labor, Group B Strep Positive Procedures: NST Intrapartum Procedure(s): Spontaneous Vaginal Delivery - [place] Data Baby 1 Male at 1 minute: 8 at 5 minutes: 9 Weight: 2920 kg Home with Mother: Yes Complications: No - Diagnosis Test Laboratory: Temp Pulse Resp BP Pulse Ox 98.0 F 78 16 99/68 L 99 04/02/17 07:39 04/02/17 07:39 04/02/17 07:39 04/02/17 07:39 04/02/17 07:39 03/31/17 03/31/17 04/01/17 00:14 01:09 06:55 RBC 3.96 3.63 L Hgb 11.6 L 10.9 L Hct 33.8 L 31.2 L Urine Opiates Screen NEGATIVE - Discharge information/Instructions Discharge Activity: Activity As Tolerated, No Lifting Over 10 Pounds, Pelvic Rest, No tub bath Discharge Diet: Regular Disposition: HOME, SELF-CARE Follow [facility]: [facility] in: 4, Weeks
[2017-04-02] MEDS: FERROUS SULFATE 325 MG TABLET PO SCH (09:38)
[2017-04-02] MEDS: SENNOSIDES/DOCUSATE 8.6-50 MG 1 EACH TABLET PO SCH (09:39)
[2017-04-02] MEDS: DOCUSATE SODIUM 100 MG CAPSULE PO SCH (09:39)
[2017-04-02 10:23] VITALS: BP 103/62
--- NOTE | 2017-04-06 10:23 | Admission Physical ---
Datetime Report Generated by KEON: 04/06/2017 10:23 Chief Complaint: Uterine Contractions; Suspected Ruptured Membranes Indication for Induction: PROM Admit Plan: Admit to Unit; Initiate Labor Protocol; Initiate Labor Induction Protocol Medication Allergies: No Medication Allergies: No Known Allergies (02/13/2017) Medication Allergies: No Known Allergies (12/15/2016) Latex: No Latex Allergies Food Allergies: none Environmental Allergies: Cats, Chemicals in cleaning products EDC: 04/11/2017 00:00 : 1 Para: 0 Term: 0 : 0 SAB: 0 IAB: 0 Ectopic: 0 Livin Cesareans: 0 VBACs: 0 Multiple Births: 0 Gestational Diabetes: No Rh Sensitization: No Incompetent Cervix: No GERI: No Infertility: No ART Treatment: No Uterine Anomaly: No IUGR: No Hx Previous C/S: No Macrosomia: No Hx Loss/Stillborn: No PIH: No Hx : No Placenta Previa/Abruption: No Depression/PP Depression: No PTL/PROM: No Post Hemorrhage: No Current Procedures: Ultrasound Obstetrical History Comments: G1-Current Alcohol: No Marijuana : No Cocaine: No Other Illicit Drugs: No Cigarettes: Never Smoker. [id number] Diabetes: No Blood Transfusion: No Pulmonary Disease (Asthma, TB): No Breast Disease: No Hypertension: No Tactical Response Group Officer Surgery: No Heart Disease: No Hosp/Surgery: No Autoimmune Disorder: No Anesthetic Complications: No Kidney Disease: No Abnormal Pap Smear: No Neuro/Epilepsy: No Psychiatric Disorders: No Other Medical Diseases: No Hepatitis/Liver Disease: No Significant Family History: No Varicosities/Phlebitis: No Trauma/Violence : No Thyroid Dysfunction: No Gonorrhea: No Genital Herpes: No Chlamydia: No Tuberculosis: No Syphilis: No Hepatitis: No HIV/AIDS Exposure: No Rash or Viral Illness: No HPV: No General: Normal HEENT: Normal Neurologic: Normal Thyroid: Normal Heart: Normal Lungs: Normal Breast: Deferred Back: Normal Abdomen: Normal Genitourinary Exam: Normal Extremities: Normal DTRs: Normal Pelvic Type: Adequate Vital Signs: Reviewed; Within Normal Limits Dilatation: 3 Effacement: 100 Station: -1 Contraction Comments: q 2-3 Pooling: Positive Ferning Results: Positive Membranes: Ruptured Amniotic Fluid Color: Clear Monitoring: External US FHR- Baseline: 130 Variability: Moderate 6-25bpm Accelerations: 15X15 Decelerations: None FHR Category: Category I Presentation: Vertex Admit Comment: 32yo at 38+3ega presented with PROM at approx midnight. Late toWill admit and IOL with Pitocin. vertex presentation. GBS positive - PCN for GBS positive. Rubella NI - will need vaccination pp. EFW 7#. Anticipate . Late PNC due to no insurance. Labor and Delivery: Plan Pain Management: Epidural Feeding Preference: Breast Benefit of Breast Feed Discussed: Yes Circumcision: Yes Informed Consent Obtained: Vaginal Delivery; Risks, Benefits and Alternatives Discussed Signature: with User ID: [email or web address]
--- NOTE | 2017-04-06 10:24 | Admission Physical ---
Datetime Report Generated by KEON: 04/06/2017 10:24 Chief Complaint: Uterine Contractions; Suspected Ruptured Membranes Indication for Induction: PROM Admit Plan: Admit to Unit; Initiate Labor Protocol; Initiate Labor Induction Protocol Medication Allergies: No Medication Allergies: No Known Allergies (02/13/2017) Medication Allergies: No Known Allergies (12/15/2016) Latex: No Latex Allergies Food Allergies: none Environmental Allergies: Cats, Chemicals in cleaning products EDC: 04/11/2017 00:00 : 1 Para: 0 Term: 0 : 0 SAB: 0 IAB: 0 Ectopic: 0 Livin Cesareans: 0 VBACs: 0 Multiple Births: 0 Gestational Diabetes: No Rh Sensitization: No Incompetent Cervix: No GERI: No Infertility: No ART Treatment: No Uterine Anomaly: No IUGR: No Hx Previous C/S: No Macrosomia: No Hx Loss/Stillborn: No PIH: No Hx : No Placenta Previa/Abruption: No Depression/PP Depression: No PTL/PROM: No Post Hemorrhage: No Alcohol: No Marijuana : No Cocaine: No Other Illicit Drugs: No Cigarettes: Never Smoker. [id number] Diabetes: No Blood Transfusion: No Pulmonary Disease (Asthma, TB): No Breast Disease: No Hypertension: No Arcade Games Mechanic Surgery: No Heart Disease: No Hosp/Surgery: No Autoimmune Disorder: No Anesthetic Complications: No Kidney Disease: No Abnormal Pap Smear: No Neuro/Epilepsy: No Psychiatric Disorders: No Other Medical Diseases: No Hepatitis/Liver Disease: No Significant Family History: No Varicosities/Phlebitis: No Trauma/Violence : No Thyroid Dysfunction: No Gonorrhea: No Genital Herpes: No Chlamydia: No Tuberculosis: No Syphilis: No Hepatitis: No HIV/AIDS Exposure: No Rash or Viral Illness: No HPV: No General: Normal HEENT: Normal Neurologic: Normal Thyroid: Normal Heart: Normal Lungs: Normal Breast: Deferred Back: Normal Abdomen: Normal Genitourinary Exam: Normal Extremities: Normal DTRs: Normal Pelvic Type: Adequate Vital Signs: Reviewed; Within Normal Limits Dilatation: 3 Effacement: 100 Station: -1 Contraction Comments: q 2-3 Pooling: Positive Ferning Results: Positive Membranes: Ruptured Amniotic Fluid Color: Clear Monitoring: External US FHR- Baseline: 130 Variability: Moderate 6-25bpm Accelerations: 15X15 Decelerations: None FHR Category: Category I Presentation: Vertex Labor and Delivery: Plan Pain Management: Epidural Feeding Preference: Breast Benefit of Breast Feed Discussed: Yes Circumcision: Yes
--- NOTE | 2017-05-11 13:42 | Admission Physical ---
Datetime Report Generated by CPN: 05/11/2017 13:42 CURRENT ADMISSION Chief Complaint: Uterine Contractions; Suspected Ruptured Membranes Indication for Induction: PROM Admit Plan: Admit to Unit; Initiate Labor Protocol; Initiate Labor Induction Protocol ALLERGIES Medication Allergies: No Medication Allergies: No Known Allergies (02/13/2017) Medication Allergies: No Known Allergies (12/15/2016) Latex: No Latex Allergies Food Allergies: none Environmental Allergies: Cats, Chemicals in cleaning products OBSTETRICAL HISTORY EDC: 04/11/2017 00:00 : 1 Para: 0 Term: 0 : 0 SAB: 0 IAB: 0 Ectopic: 0 Livin Cesareans: 0 VBACs: 0 Multiple Births: 0 Gestational Diabetes: No Rh Sensitization: No Incompetent Cervix: No GERI: No Infertility: No ART Treatment: No Uterine Anomaly: No IUGR: No Hx Previous C/S: No Macrosomia: No Hx Loss/Stillborn: No PIH: No Hx : No Placenta Previa/Abruption: No Depression/PP Depression: No PTL/PROM: No Post Hemorrhage: No Current Procedures: Ultrasound Obstetrical History Comments: G1-Current SEE RECORDS Alcohol: No Marijuana : No Cocaine: No Other Illicit Drugs: No Cigarettes: Never Smoker. [id number] MEDICAL HISTORY Diabetes: No Blood Transfusion: No Pulmonary Disease (Asthma, TB): No Breast Disease: No Hypertension: No Farmhand Surgery: No Heart Disease: No Hosp/Surgery: No Autoimmune Disorder: No Anesthetic Complications: No Kidney Disease: No Abnormal Pap Smear: No Neuro/Epilepsy: No Psychiatric Disorders: No Other Medical Diseases: No Hepatitis/Liver Disease: No Significant Family History: No Varicosities/Phlebitis: No Trauma/Violence : No Thyroid Dysfunction: No INFECTIOUS HISTORY Gonorrhea: No Genital Herpes: No Chlamydia: No Tuberculosis: No Syphilis: No Hepatitis: No HIV/AIDS Exposure: No Rash or Viral Illness: No HPV: No PHYSICAL EXAM General: Normal HEENT: Normal Neurologic: Normal Thyroid: Normal Heart: Normal Lungs: Normal Breast: Deferred Back: Normal Abdomen: Normal Genitourinary Exam: Normal Extremities: Normal DTRs: Normal Pelvic Type: Adequate Vital Signs: Reviewed; Within Normal Limits VAGINAL EXAM Dilatation: 3 Effacement: 100 Station: -1 Contraction Comments: q 2-3 MEMBRANES Pooling: Positive Ferning Results: Positive Membranes: Ruptured Amniotic Fluid Color: Clear FETUS A EGA: 38.3 Monitoring: External US FHR- Baseline: 130 Variability: Moderate 6-25bpm Accelerations: 15X15 Decelerations: None FHR Category: Category I Presentation: Vertex Admit Comment: 32yo at 38+3ega presented with PROM at approx midnight. Late toWill admit and IOL with Pitocin. vertex presentation. GBS positive - PCN for GBS positive. Rubella NI - will need vaccination pp. EFW 7#. Anticipate . Late PNC due to no insurance. PLANS FOR LABOR AND DELIVERY Labor and Delivery: Plan Pain Management: Epidural Feeding Preference: Breast Benefit of Breast Feed Discussed: Yes Circumcision: Yes INFORMED CONSENT Informed Consent Obtained: Vaginal Delivery; Risks, Benefits and Alternatives Discussed Signature: with User ID: [email or web address]
--- NOTE | 2017-06-17 10:17 | Delivery Summary ---
Del Sum A-C Datetime Report Generated by CPN: 06/17/2017 10:17 DELIVERY PERSONNEL DELIVERY PERSONNEL: [phone] DELIVERY PERSONNEL: [id number];[id number] DELIVERY PERSONNEL: [phone] Delivery Doctor:: Joy Hawkins CNM Nurse Vending Machine Operator Certified:: Joy Hawkins CNM Labor and Delivery Nurse:: Robina Redd RNsnowboard designer Nurse:: VAL Knox Nursery Nurse:: Chanelle Nichols/ANA: Abel Alvarez ST MATERNAL INFORMATION Delivery Anesthesia: Epidural Medications After Delivery: Pitocin Bolus-Please Comment; Pitocin Drip 20 Units/1000ml NSS; Cytotec 600mcg Per Rectum/Vagina Estimated Blood Loss (ml): 300 Maternal Complications: None Provider Comments: viable male from OA to JOSE over ML lac, loose nuchal cord, reduced easily, placed on mothers abd, spont delivery of grossly normal intact placenta, 3 VC, EBL = 300cc, cord clamped and cut after 4 minutes, baby remains in recovery on mothers abd for bonding, FFFM. Lac repaired without difficulty, cytotec 600 mcg and fundal massage and Pitocin used. Plans to breast feed,hsb in room with baby and pt LABOR SUMMARY EDC: 04/11/2017 00:00 No. Babies in Womb: 1 Attempted: No Labor Anesthesia: Epidural LABOR INFORMATION Reason for Induction: Not Applicable Onset of Labor: 03/30/2017 23:00 Complete Dilatation: 03/31/2017 07:53 Oxytocin: Augmentation Group B Beta Strep: Positive Antibiotics # of Doses: 2 Antibiotics Time of Last Dose: 0405 Name of Antibiotic Given: penicillin Steroids Given: None Reason Steroids Not Administered: Not Applicable MEMBRANES Membranes Rupture Method: Spontaneous Membranes Rupture Method: Spontaneous Rupture of Membranes: 03/30/2017 23:00 Length of Rupture (hr): 9.57 Amniotic Fluid Color: Clear Amniotic Fluid Color: Clear Amniotic Fluid Amount: Small Amniotic Fluid Amount: Scant Amniotic Fluid Odor: Normal STAGES OF LABOR Stage 1 hr: 8 Stage 1 min: 53 Stage 2 hr: 0 Stage 2 min: 41 Stage 3 hr: 0 Stage 3 min: 8 Total Time in Labor hr: 9 Total Time in Labor min: 42 VAGINAL DELIVERY Episiotomy: None Laceration Extension: First Degree Laceration Type: Perineal Laceration Repair: Yes Laceration Repair Note: ML repaired without difficulty, chroomic Sponge Count Correct: N/A Sharps Count Correct: N/A CSECTION DELIVERY Primary Indication: N/A Secondary Indication: N/A CSection Incidence: N/A Labor: N/A Elective: N/A CSection Incision: N/A BABY A INFORMATION Delivery Date/Time: 03/31/2017 08:34 Method of Delivery: Vaginal Born in Route : No : N/A Forceps: N/A Vacuum Extraction: N/A Shoulder Dystocia : No PRESENTATION/POSITION BABY A Presentation: Cephalic Presentation: Cephalic Presentation: Cephalic Presentation: Cephalic Cephalic Presentation: Vertex Vertex Position: Right Occipital Anterior Breech Presentation: N/A PLACENTA INFORMATION BABY A Placenta Delivery Time : 03/31/2017 08:42 Placenta Method of Delivery: Spontaneous Placenta Status: Delivered SCORES BABY A Heart Rate 1 min: >100 bpm Resp Effort 1 min: Good Cry Reflex Irritability 1 min: Cough or Sneeze or Pulls Away Muscle Tone 1 min: Active Motion Color 1 min: Blue/Pale Resuscitation Effort 1 min: Tactile Stimulation SCORE 1 MIN: 8 Heart Rate 5 min: >100 bpm Resp Effort 5 min: Good Cry Reflex Irritability 5 min: Cough or Sneeze or Pulls Away Muscle Tone 5 min: Active Motion Color 5 min: Body [place], Extremities Blue Resuscitation Effort 5 min: N/A SCORE 5 MIN: 9 Resuscitation Effort 10 min: N/A INFANT INFORMATION BABY A Gestational Age at Delivery: 38.3 Gestational Status: Early Term- 37- 38.6 Weeks Outcome : Liveborn Infant Condition : Fair Sex: Male IDENTIFICATION BABY A Verification Date/Time: 03/31/2017 09:06 ID Band Number: [id number] Mother's Name Verified: Yes Infant RN Verifying Infant: Jaida Camp RNC Additional Verifying Personnel: Robina Redd RN WEIGHT/LENGTH BABY A Infant Birthweight (gm): 2920 Infant Weight (lb): 6 Weight (oz): 7 Length (in): 19.75 Infant Length (cm): 50.17 CORD INFORMATION BABY A No. Cord Vessels: 3 Nuchal Cord : Around Neck x1, Loose Cord Blood Taken: Yes-For Eval (Mom's Blood Type - or O+) Suction: Mouth; Nose ASSESSMENT BABY A Infant Complications: Multiple Variable Decels Physical Findings at Delivery: Caput Succedaneum; Puncture Wound from Scalp Electrode Respirations: Nasal Flaring Skin to Skin: Yes Skin to Skin Time (min): 60 Club Former/ALS Called : No Infant Care By: Chanelle Kirkland [facility] Transferred To: Remains with Mother BABY B INFORMATION Shoulder Dystocia : No
--- NOTE | 2017-06-17 10:31 | Delivery Summary ---
Del Sum A-C Datetime Report Generated by CPN: 06/17/2017 10:31 DELIVERY PERSONNEL DELIVERY PERSONNEL: [phone];[id number] DELIVERY PERSONNEL: [phone] DELIVERY PERSONNEL: [phone] Delivery Doctor:: Joy Hawkins CNM Nurse Geospatial Systems Integrator Certified:: Joy Hawkins CNM Labor and Delivery Nurse:: Robina Redd RNgeophysical party chief Nurse:: VAL Knox Nursery Nurse:: Chanelle Nichols/ANA: Abel Alvarez ST MATERNAL INFORMATION Delivery Anesthesia: Epidural Medications After Delivery: Pitocin Bolus-Please Comment; Pitocin Drip 20 Units/1000ml NSS; Cytotec 600mcg Per Rectum/Vagina Estimated Blood Loss (ml): 300 Maternal Complications: None Provider Comments: viable male from OA to JOSE over ML lac, loose nuchal cord, reduced easily, placed on mothers abd, spont delivery of grossly normal intact placenta, 3 VC, EBL = 300cc, cord clamped and cut after 4 minutes, baby remains in recovery on mothers abd for bonding, FFFM. Lac repaired without difficulty, cytotec 600 mcg and fundal massage and Pitocin used. Plans to breast feed,hsb in room with baby and pt LABOR SUMMARY EDC: 04/11/2017 00:00 No. Babies in Womb: 1 Attempted: No Labor Anesthesia: Epidural LABOR INFORMATION Reason for Induction: Not Applicable Onset of Labor: 03/30/2017 23:00 Complete Dilatation: 03/31/2017 07:53 Oxytocin: Augmentation Group B Beta Strep: Positive Antibiotics # of Doses: 2 Antibiotics Time of Last Dose: 0405 Name of Antibiotic Given: penicillin Steroids Given: None Reason Steroids Not Administered: Not Applicable MEMBRANES Membranes Rupture Method: Spontaneous Membranes Rupture Method: Spontaneous Rupture of Membranes: 03/30/2017 23:00 Length of Rupture (hr): 9.57 Amniotic Fluid Color: Clear Amniotic Fluid Color: Clear Amniotic Fluid Amount: Small Amniotic Fluid Amount: Scant Amniotic Fluid Odor: Normal STAGES OF LABOR Stage 1 hr: 8 Stage 1 min: 53 Stage 2 hr: 0 Stage 2 min: 41 Stage 3 hr: 0 Stage 3 min: 8 Total Time in Labor hr: 9 Total Time in Labor min: 42 VAGINAL DELIVERY Episiotomy: None Laceration Extension: First Degree Laceration Type: Perineal Laceration Repair: Yes Laceration Repair Note: ML repaired without difficulty, chroomic Sponge Count Correct: N/A Sharps Count Correct: N/A CSECTION DELIVERY Primary Indication: N/A Secondary Indication: N/A CSection Incidence: N/A Labor: N/A Elective: N/A CSection Incision: N/A BABY A INFORMATION Delivery Date/Time: 03/31/2017 08:34 Method of Delivery: Vaginal Born in Route : No : N/A Forceps: N/A Vacuum Extraction: N/A Shoulder Dystocia : No PRESENTATION/POSITION BABY A Presentation: Cephalic Presentation: Cephalic Presentation: Cephalic Presentation: Cephalic Cephalic Presentation: Vertex Vertex Position: Right Occipital Anterior Breech Presentation: N/A PLACENTA INFORMATION BABY A Placenta Delivery Time : 03/31/2017 08:42 Placenta Method of Delivery: Spontaneous Placenta Status: Delivered SCORES BABY A Heart Rate 1 min: >100 bpm Resp Effort 1 min: Good Cry Reflex Irritability 1 min: Cough or Sneeze or Pulls Away Muscle Tone 1 min: Active Motion Color 1 min: Blue/Pale Resuscitation Effort 1 min: Tactile Stimulation SCORE 1 MIN: 8 Heart Rate 5 min: >100 bpm Resp Effort 5 min: Good Cry Reflex Irritability 5 min: Cough or Sneeze or Pulls Away Muscle Tone 5 min: Active Motion Color 5 min: Body [place], Extremities Blue Resuscitation Effort 5 min: N/A SCORE 5 MIN: 9 Resuscitation Effort 10 min: N/A INFANT INFORMATION BABY A Gestational Age at Delivery: 38.3 Gestational Status: Early Term- 37- 38.6 Weeks Outcome : Liveborn Infant Condition : Fair Sex: Male IDENTIFICATION BABY A Verification Date/Time: 03/31/2017 09:06 ID Band Number: [id number] Mother's Name Verified: Yes Infant RN Verifying Infant: Jaida Camp RNC Additional Verifying Personnel: Robina Redd RN WEIGHT/LENGTH BABY A Infant Birthweight (gm): 2920 Infant Weight (lb): 6 Weight (oz): 7 Length (in): 19.75 Infant Length (cm): 50.17 CORD INFORMATION BABY A No. Cord Vessels: 3 Nuchal Cord : Around Neck x1, Loose Cord Blood Taken: Yes-For Eval (Mom's Blood Type - or O+) Suction: Mouth; Nose ASSESSMENT BABY A Infant Complications: Multiple Variable Decels Physical Findings at Delivery: Caput Succedaneum; Puncture Wound from Scalp Electrode Respirations: Nasal Flaring Skin to Skin: Yes Skin to Skin Time (min): 60 Gas Or Water Meter Installer/ALS Called : No Infant Care By: Chanelle Kirkland [facility] Transferred To: Remains with Mother BABY B INFORMATION Shoulder Dystocia : No
--- NOTE | 2017-06-17 10:34 | Delivery Summary ---
Del Sum A-C Datetime Report Generated by CPN: 06/17/2017 10:33 DELIVERY PERSONNEL DELIVERY PERSONNEL: [id number];[id number];[id number] DELIVERY PERSONNEL: [phone];[phone] DELIVERY PERSONNEL: [phone] Delivery Doctor:: Joy Hawkins CNM Nurse Balance Weigher Certified:: Joy Hawkins CNM Labor and Delivery Nurse:: Robina Redd RNadvertising specialist Nurse:: VAL Knox Nursery Nurse:: Chanelle Nichols/ANA: Abel Alvarez ST MATERNAL INFORMATION Delivery Anesthesia: Epidural Medications After Delivery: Pitocin Bolus-Please Comment; Pitocin Drip 20 Units/1000ml NSS; Cytotec 600mcg Per Rectum/Vagina Estimated Blood Loss (ml): 300 Maternal Complications: None Provider Comments: viable male from OA to JOSE over ML lac, loose nuchal cord, reduced easily, placed on mothers abd, spont delivery of grossly normal intact placenta, 3 VC, EBL = 300cc, cord clamped and cut after 4 minutes, baby remains in recovery on mothers abd for bonding, FFFM. Lac repaired without difficulty, cytotec 600 mcg and fundal massage and Pitocin used. Plans to breast feed,hsb in room with baby and pt LABOR SUMMARY EDC: 04/11/2017 00:00 No. Babies in Womb: 1 Attempted: No Labor Anesthesia: Epidural LABOR INFORMATION Reason for Induction: Not Applicable Onset of Labor: 03/30/2017 23:00 Complete Dilatation: 03/31/2017 07:53 Oxytocin: Augmentation Group B Beta Strep: Positive Antibiotics # of Doses: 2 Antibiotics Time of Last Dose: 0405 Name of Antibiotic Given: penicillin Steroids Given: None Reason Steroids Not Administered: Not Applicable MEMBRANES Membranes Rupture Method: Spontaneous Membranes Rupture Method: Spontaneous Rupture of Membranes: 03/30/2017 23:00 Length of Rupture (hr): 9.57 Amniotic Fluid Color: Clear Amniotic Fluid Color: Clear Amniotic Fluid Amount: Small Amniotic Fluid Amount: Scant Amniotic Fluid Odor: Normal STAGES OF LABOR Stage 1 hr: 8 Stage 1 min: 53 Stage 2 hr: 0 Stage 2 min: 41 Stage 3 hr: 0 Stage 3 min: 8 Total Time in Labor hr: 9 Total Time in Labor min: 42 VAGINAL DELIVERY Episiotomy: None Laceration Extension: First Degree Laceration Type: Perineal Laceration Repair: Yes Laceration Repair Note: ML repaired without difficulty, chroomic Sponge Count Correct: N/A Sharps Count Correct: N/A CSECTION DELIVERY Primary Indication: N/A Secondary Indication: N/A CSection Incidence: N/A Labor: N/A Elective: N/A CSection Incision: N/A BABY A INFORMATION Delivery Date/Time: 03/31/2017 08:34 Method of Delivery: Vaginal Born in Route : No : N/A Forceps: N/A Vacuum Extraction: N/A Shoulder Dystocia : No PRESENTATION/POSITION BABY A Presentation: Cephalic Presentation: Cephalic Presentation: Cephalic Presentation: Cephalic Cephalic Presentation: Vertex Vertex Position: Right Occipital Anterior Breech Presentation: N/A PLACENTA INFORMATION BABY A Placenta Delivery Time : 03/31/2017 08:42 Placenta Method of Delivery: Spontaneous Placenta Status: Delivered SCORES BABY A Heart Rate 1 min: >100 bpm Resp Effort 1 min: Good Cry Reflex Irritability 1 min: Cough or Sneeze or Pulls Away Muscle Tone 1 min: Active Motion Color 1 min: Blue/Pale Resuscitation Effort 1 min: Tactile Stimulation SCORE 1 MIN: 8 Heart Rate 5 min: >100 bpm Resp Effort 5 min: Good Cry Reflex Irritability 5 min: Cough or Sneeze or Pulls Away Muscle Tone 5 min: Active Motion Color 5 min: Body [place], Extremities Blue Resuscitation Effort 5 min: N/A SCORE 5 MIN: 9 Resuscitation Effort 10 min: N/A INFANT INFORMATION BABY A Gestational Age at Delivery: 38.3 Gestational Status: Early Term- 37- 38.6 Weeks Outcome : Liveborn Infant Condition : Fair Sex: Male IDENTIFICATION BABY A Verification Date/Time: 03/31/2017 09:06 ID Band Number: [id number] Mother's Name Verified: Yes Infant RN Verifying Infant: Jaida Camp RNC Additional Verifying Personnel: Robina Redd RN WEIGHT/LENGTH BABY A Infant Birthweight (gm): 2920 Infant Weight (lb): 6 Weight (oz): 7 Length (in): 19.75 Infant Length (cm): 50.17 CORD INFORMATION BABY A No. Cord Vessels: 3 Nuchal Cord : Around Neck x1, Loose Cord Blood Taken: Yes-For Eval (Mom's Blood Type - or O+) Suction: Mouth; Nose ASSESSMENT BABY A Infant Complications: Multiple Variable Decels Physical Findings at Delivery: Caput Succedaneum; Puncture Wound from Scalp Electrode Respirations: Nasal Flaring Skin to Skin: Yes Skin to Skin Time (min): 60 Personal Computer Specialist/ALS Called : No Infant Care By: Chanelle Kirkland [facility] Transferred To: Remains with Mother BABY B INFORMATION Shoulder Dystocia : No
== END 2017-04-02 11:45 | disposition home or self-care (01) | DRG 775 ==
LOC: LC 00:07 → LR 00:56 → 2S 11:32
PROVIDERS: ADMIT Student in an Organized Health Care Education/Training Program; ATTEND Student in an Organized Health Care Education/Training Program
PROC: 10E0XZZ Delivery of Products of Conception, External Approach (ICD-10-PCS; principal; 2017-03-31)
PROC: 0HQ9XZZ Repair Perineum Skin, External Approach (ICD-10-PCS; 2017-03-31)
DX: O42.92 Full-term premature rupture of membranes, unspecified as to length of time between rupture and onset of labor (principal); O99.824 Streptococcus B carrier state complicating childbirth; O69.81X0 Labor and delivery complicated by cord around neck, without compression, not applicable or unspecified; O70.0 First degree perineal laceration during delivery; O76 Abnormality in fetal heart rate and rhythm complicating labor and delivery; Z3A.38 38 weeks gestation of pregnancy; Z37.0 Single live birth
CPT/HCPCS: 36415; 80307; 81005; 82803; 84112; 85025; 85027; 86592; 86850; 86900; 86901; 88307; 94760; J2540; J2590; J3490

== ENCOUNTER 2020-03-21 16:05 | Emergency (ER) | payer SELFPAY ==
--- NOTE | 2020-03-21 16:37 | ER Document Report ---
ED Medical Screen (RME) - General Chief Complaint: Vaginal Bleeding Stated Complaint: VAGINAL BLEEDING/14 WEEKS Time Seen by Provider: 03/21/20 16:32 Notes: Patient is a 35-year-old female who presents the emergency department with a c hief complaint of vaginal bleeding. Patient states that she is about 14 weeks . G2, P1. Patient states that she started off spotting and then had increased bleeding today. Denies any large clots. Exam: Soft, mildly tender abdomen. I have greeted and performed a rapid initial assessment of this patient. A comprehensive ED assessment and evaluation of the patient, analysis of test res ults and completion of medical decision making process will be conducted by an additional ED providers. TRAVEL OUTSIDE OF THE [place] IN LAST 30 DAYS: No - Related Data Allergies/Adverse Reactions: No Known Allergies Allergy (Verified 03/21/20 16:29) Past Medical History Pulmonary Medical History: Reports: Hx Pneumonia Renal/ Medical History: Denies: Hx Peritoneal Dialysis Physical Exam - Vital signs Vitals: Pulse Resp BP Pulse Ox 122 H 18 122/68 100 03/21/20 16:25 03/21/20 16:25 03/21/20 16:25 03/21/20 16:25 Course - Vital Signs Vital signs: Temp Pulse Resp BP Pulse Ox 122 H 18 122/68 100 03/21/20 16:25 03/21/20 16:25 03/21/20 16:25 03/21/20 16:25
[2020-03-21 16:52] LABS: APPEARANCE,URINE CLEAR; BILIRUBIN,URINE NEGATIVE (NEGATIVE); COLOR,URINE COLORLESS; GLUCOSE, URINE NEGATIVE (NEGATIVE); KETONES,URINE NEGATIVE (NEGATIVE); LEUKOCYTE ESTERASE,URINE NEGATIVE (NEGATIVE); NITRITE,URINE NEGATIVE (NEGATIVE); PROTEIN,URINE NEGATIVE (NEGATIVE); URINE SPECIFIC GRAVITY 1.002; UROBILINOGEN,URINE NEGATIVE mg/dL (<2.0)
[2020-03-21 16:56] LABS: ABSOLUTE EOSINOPHILS # (AUTO) 0.1 10^3/uL (0.0-0.6); ABSOLUTE LYMPHOCYTES (AUTO) 1.5 10^3/uL (0.5-4.7); ABSOLUTE MONOCYTES (AUTO) 0.3 10^3/uL (0.1-1.4); HEMOGLOBIN 13.5 g/dL (12.0-15.5); TOTAL CELLS COUNTED % (AUTO) 100 %
[2020-03-21 17:00] LABS: ABSOLUTE NEUT (AUTO) 6.5 10^3/uL (1.7-8.2); BASOPHILS % (AUTO) 0.4 % (0-2); LYMPHOCYTES % (AUTO) 17.9 % (13-45); MEAN CORPUSCULAR HEMOGLOBIN 29.6 pg (27.0-33.4); MEAN CORPUSCULAR HGB CONC 35.4 g/dL (32.0-36.0); MEAN CORPUSCULAR VOLUME 84 fl (80-97); MONOCYTES % (AUTO) 3.7 % (3-13); PLATELET COUNT 323 10^3/uL (150-450); RED BLOOD COUNT 4.54 10^6/uL (3.72-5.28); RED CELL DISTRIBUTION WIDTH 13.4 % (11.5-14.0); WHITE BLOOD COUNT 8.4 10^3/uL (4.0-10.5)
[2020-03-21 17:14] LABS: ALBUMIN 4.6 g/dL (3.5-5.0); ALKALINE PHOSPHATASE 63 U/L (38-126); ANION GAP 9 (5-19); ASPARTATE AMINO TRANSFERASE 18 U/L (14-36); BILIRUBIN,TOTAL 0.2 mg/dL (0.2-1.3); BLOOD UREA NITROGEN 13 mg/dL (7-20); CALCIUM 9.4 mg/dL (8.4-10.2); CARBON DIOXIDE 27 mmol/L (22-30); CHLORIDE 101 mmol/L (98-107); GLUCOSE 108 mg/dL (75-110); TOTAL PROTEIN 7.8 g/dL (6.3-8.2)
--- NOTE | 2020-03-21 17:51 | RADIOLOGY REPORT (SQ) ---
EXAM DESCRIPTION: U/S [id number] TRNABD 1GES W/ODOP IMAGES COMPLETED DATE/TIME: 03/21/2020 5:28 pm REASON FOR STUDY: vaginal bleeding COMPARISON: None. TECHNIQUE: Transabdominal static and realtime grayscale images acquired of the pelvis. Additional se lected spectral and color Doppler images recorded. All images stored on PACs. bHCG: Not available. CLINICAL DATES: THOMPSON: 09/18/2020. EGA: 14 weeks 1 day LIMITATIONS: None. FINDINGS: FETUS: No pole visualized. ULTRASOUND EGA: 8 weeks 5 days ULTRASOUND THOMPSON: 10/26/2020 GESTATIONAL SAC: 3.45 cm the sac is irregular in appearance. Heterogenous area surrounds the gestat ional sac, question of a blighted ovum. CRL: Not visualized SUBCHORIONIC BLEED: No. SIZE OF BLEED: Not applicable. UTERUS: The uterus measures 13.4 x 9.5 x 7.7 cm. No masses. No anomalies. CERVICAL LENGTH: 2.5 cm Closed. RIGHT ADNEXA: The right ovary measures 4.0 x 2.6 x 3.2 cm, normal size. A 1.9 x 1.7 x 1.7 cm cyst, may represent corpus luteum cyst. Normal arterial vascular flow. No adnexal free fluid. . LEFT ADNEXA: The left ovary measures 3.8 x 2.7 x 2.2 cm. No adnexal mass. No adnexal free fluid. FREE FLUID: None. OTHER: No other significant finding. IMPRESSION: 1. No living INTRAUTERINE identified by ultrasound examination. An irregular appearing gestational sac with a heterogenous surrounding area. The gestational sac correlates to a n EGA of 8 weeks 5 days. Clinical correlation and correlation with lab values suggested. 2. Right ovarian cyst may represent corpus luteum cyst. TECHNICAL DOCUMENTATION: JOB ID: [id number] 2010 [employer]- All Rights Reserved rev-04/16 Reading location - IP/workstation name: [email or web address]
--- NOTE | 2020-03-21 18:59 | ER Document Report ---
ED GI/ - General Chief Complaint: Vaginal Bleeding Stated Complaint: VAGINAL BLEEDING/14 WEEKS Time Seen by Provider: 03/21/20 16:32 Primary [facility]: [facility] [Provider Group] - Follow up tomorrow Notes: Patient is a 35-year-old female who presents the emergency department with a chief complaint of vaginal bleeding. Her bleeding started today. States that it was only a little bit of spotting and then ended up having more bleeding. Patient states that her spotting has let up since I saw her in triage. Patient states that she is about 13-14 weeks . Last menstrual cycle was 12/13/2019. She has not received care. Denies any dysuria or vaginal discharge other than blood. Denies any abdominal cramping or pelvic pain. TRAVEL OUTSIDE OF THE [place] IN LAST 30 DAYS: No - Related Data Allergies/Adverse Reactions: No Known Allergies Allergy (Verified 03/21/20 16:29) Home Medications: denies Past Medical History - General Last Menstrual Period: 12/13/2019 - Social History Smoking Status: Never Smoker Chew tobacco use (# tins/day): No Frequency of alcohol use: None Drug Abuse: None Family History: Reviewed & Not Pertinent Patient has suicidal ideation: No Patient has homicidal ideation: No Pulmonary Medical History: Reports: Hx Pneumonia Renal/ Medical History: Denies: Hx Peritoneal Dialysis Review of Systems - Review of Systems Notes: REVIEW OF SYSTEMS: CONSTITUTIONAL : Denies recent illness. Denies recent unintentional weight loss. Denies fever, chills, or sweats. EENT: Denies eye, ear, throat, or mouth pain, discharge, or symptoms. Denies nasal or sinus congestion. CARDIOVASCULAR: Denies chest pain. RESPIRATORY: Denies shortness of breath, cough, congestion, difficulty breathing, or wheezing. GASTROINTESTINAL: Denies nausea, vomiting, and diarrhea. Denies abdominal pain. Denies constipation. GENITOURINARY: Denies difficulty urinating, burning, blood in urine, urgency or frequency. FEMALE GENITOURINARY: See HPI. MUSCULOSKELETAL: Denies neck and back pain. Denies joint pain or swelling. SKIN: Denies rash, itchiness, or lesions HEMATOLOGIC : Denies easy bruising or bleeding. LYMPHATIC: Denies swollen, painful, enlarged glands. NEUROLOGICAL: Denies no numbness or tingling denies weakness. Denies headache. Denies altered mental status. Denies alteration in speech. PSYCHIATRIC: Denies stress, anxiety, alteration in sleep patterns, or depress ion. All other systems reviewed and negative. Physical Exam - Vital signs Vitals: Pulse Resp BP Pulse Ox 122 H 18 122/68 100 03/21/20 16:25 03/21/20 16:25 03/21/20 16:25 03/21/20 16:25 - Notes Notes: PHYSICAL EXAMINATION: GENERAL: Well-appearing, well-nourished and in no acute distress. HEAD: Atraumatic, normocephalic. EYES: Pupils equal round and reactive to light, extraocular movements intact, sclera anicteric, conjunctiva are normal. ENT: nares patent, oropharynx clear without exudates. Moist mucous membranes. NECK: Normal range of motion, supple without lymphadenopathy LUNGS: Breath sounds clear to auscultation bilaterally and equal. No wheezes rales or rhonchi. HEART: Regular rate and rhythm without murmurs ABDOMEN: Soft, mildly tender mid lower abdomen normoactive bowel sounds. No guarding, no rebound. No masses appreciated. EXTREMITIES: Normal range of motion, no pitting or edema. No cyanosis. NEUROLOGICAL: No focal neurological deficits. Moves all extremities spontaneously and on command. PSYCH: Normal mood, normal affect. SKIN: Warm, Dry, normal turgor, no rashes or lesions noted. Course - Re-evaluation Re-evalutation: 03/21/20 Patient's ultrasound shows no living intrauterine . There is a gestational sac that is measured at 8 weeks, 5 days. Patient may have had a live close, or she has a very early . I discussed these findings with the patient. Patient's hematology is unremarkable. No anemia or leukocytosis noted. Chemistries and LFTs are also normal. Beta hCG is 16,406. Patient has a moderate amount of blood in her urine, but this is most consistent with her vaginal bleeding. According to the ultrasound, patient cervix was closed. Patient agrees to follow-up with OB. She expresses gratitude towards her care. Follow-up precautions were given. Verbal discharge instructions were given to the patient. They verbalized understanding. They are stable for discharge. - Vital Signs Vital signs: Temp Pulse Resp BP Pulse Ox 98.6 F 82 17 128/77 H 98 03/21/20 19:18 03/21/20 19:18 03/21/20 19:18 03/21/20 19:18 03/21/20 19:18 - Laboratory Result Diagrams: 03/21/20 16:45 03/21/20 16:45 Laboratory results interpreted by me: 03/21/20 03/21/20 16:26 16:45 Sodium 136.9 L Beta HCG, Quant 19378.00 H Urine Blood MODERATE H Discharge - Discharge Clinical Impression: Vaginal bleeding Condition: Stable Disposition: HOME, SELF-CARE Additional Instructions: You are seen today in the emergency department for vaginal bleeding. You may have the live with, as we discussed. Please follow-up with OB in regards to this visit. Referrals: [facility] [Provider Group] - Follow up tomorrow
[2020-03-21 19:20] VITALS: BP 128/77
== END 2020-03-21 19:10 | disposition home or self-care (01) ==
LOC: ER 16:05
DX: N93.9 Abnormal uterine and vaginal bleeding, unspecified (principal); R10.819 Abdominal tenderness, unspecified site; R31.9 Hematuria, unspecified
CPT/HCPCS: 36415; 76801; 80053; 81001; 83690; 84702; 85025; 99284